=== PATIENT | female | born 1960 | race Caucasian/White ===

== ENCOUNTER 2019-10-27 15:13 | Emergency (ER) | payer MEDICAID ==
[~2019-10-27] VITALS: Ht 165.1 cm; Wt 76.7 kg
[~2019-10-27 15:13] MED LIST: ACETAMINOPHEN325 M1 PO; PRILOSEC 20 MG20 MG PO; TRANDATE 200 M200 MG PO; ZESTRIL20 MG PO
[2019-10-27] MEDS ORDERED: ACTOS 30 MG TAB30 M1 PO (15:36)
[2019-10-27] MEDS ORDERED: DEXAMETHASONE 22 M1 PO (15:36)
[2019-10-27] MEDS ORDERED: PROTONIX40 M2 PO (15:37)
[2019-10-27] MEDS ORDERED: RANITIDINE 150150 M1 PO (15:37)
[2019-10-27 16:45] VITALS: BP 107/49
== END 2019-10-27 16:46 | disposition home or self-care (01) ==
LOC: M.ERS 15:13
DX: S40.022A Contusion of left upper arm, initial encounter (principal); S40.021A Contusion of right upper arm, initial encounter; S37.92XA Contusion of unspecified urinary and pelvic organ, initial encounter; S10.93XA Contusion of unspecified part of neck, initial encounter; S20.211A Contusion of right front wall of thorax, initial encounter; S30.1XXA Contusion of abdominal wall, initial encounter; Z88.0 Allergy status to penicillin; Z88.8 Allergy status to other drugs, medicaments and biological substances; Y08.89XA Assault by other specified means, initial encounter; Y93.89 Activity, other specified; Y92.89 Other specified places as the place of occurrence of the external cause; Y99.8 Other external cause status